=== PATIENT | male | born 1995 | race Two or more races ===

== ENCOUNTER → 2022-09-16 | Emergency (ER) | payer OTHER ==
[~2022-09-16] VITALS: Ht 167.6 cm; Wt 73.9 kg
[~2022-09-16] MED LIST: LEVSIN/SL0.125 MG SL
== END | disposition home or self-care (01) ==
LOC: ER 23:16
DX: K82.4 Cholesterolosis of gallbladder (principal); R10.11 Right upper quadrant pain; Z88.6 Allergy status to analgesic agent; N28.1 Cyst of kidney, acquired

== ENCOUNTER 2023-05-09 11:59 | Emergency (ER) | payer OTHER ==
[~2023-05-09] VITALS: Ht 175.3 cm; Wt 72.6 kg
[2023-05-09] MEDS ORDERED: OMEPRAZOLE-BIC1 EAC1 PO (12:52)
[2023-05-09 13:40] LABS: HEMATOCRIT 44.1 % (39.0-48.0); HEMOGLOBIN 15.6 g/dL (13-16.00); MEAN CELL VOLUME 83.1 fL (80.0-100.00); MEAN CORPUSCULAR HEMOGLOBIN 29.4 pg (27.00-32.0); MEAN CORPUSCULAR HGB CONC 35.4 g/dl (32.0-36.0); PLATELET COUNT 251 K/uL (150-450); RED CELL DISTRIBUTION WIDTH 13.5 % (11.5-14.5)
== END 2023-05-09 15:03 | disposition home or self-care (01) ==
LOC: ER 11:59
PROVIDERS: General Practice
DX: K29.70 Gastritis, unspecified, without bleeding (principal); K44.9 Diaphragmatic hernia without obstruction or gangrene; Z88.6 Allergy status to analgesic agent